=== PATIENT | male | born 1985 | race Caucasian/White ===

== ENCOUNTER → 2018-08-18 14:32 | Outpatient (CLI) | payer MEDICAID, SELFPAY ==
[2018-08-18 13:22] VITALS: BMI 26.6
[2018-08-18 15:27] LABS: Hematocrit 46.2 % (40-54); Mean Corp Hgb Conc 34.6 g/gl (32-36); Mean Corpuscular Hgb 29.6 pg (27.0-32.0); Mean Corpuscular Volume 85.4 fL (80-94); Mean Platelet Vol. 9.8 fl (6.2-12.0); Platelet Count 264 K/mm3 (150-450); RBC Distribution Width CV 12.7 % (11.6-14.6); RBC Distribution Width SD 39.3 fl (35.1-43.9); Red Blood Count 5.41 M/mm3 (4.6-6.2)
[2018-08-18 15:34] LABS: Scan Indicated on CBC? Y/N NO
[2018-08-18 15:38] LABS: ALB/GLOB Ratio 0.9 RATIO (0.9-2.4); AST(SGOT) 60 U/L (15-37); Alanine Aminotransfer ALT/SGPT 108 U/L (16-61); Albumin, Serum 3.5 g/dL (3.2-5.0); Alkaline Phosphatase 130 U/L (45-117); Amylase 62 U/L (25-115); Anion Gap 8 (5-15); BUN 20 mg/dL (7-18); BUN/Creat Ratio 19.6 RATIO (10-20); Calcium,Total 8.8 mg/dL (8.5-10.1); Chloride 103 mmol/L (98-107); Creatinine, Serum 1.02 mg/dL (0.70-1.30); EST Glomerular Filtration Rate 89 mL/min (>60); Est Glom Filt Rate - Afr Amer 107 mL/min (>60); Globulin 4.1 g/dL (2.2-4.2); Glucose 92 mg/dL (74-106); Lipase 178 U/L (73-393); Potassium 4.4 mmol/L (3.5-5.1); Protein, Total 7.6 g/dL (6.4-8.2); Sodium Level 141 mmol/L (136-145)
== END ==
PROVIDERS: Family Provider Family Medicine; PCP Family Medicine; Referring Provider Surgery; Visit Provider Surgery
DX: R10.9 Unspecified abdominal pain (principal)
CPT/HCPCS: 36415; 80053; 82150; 83690; 85027

== ENCOUNTER → 2018-08-27 08:02 | Outpatient (CLI) | payer MEDICAID, SELFPAY ==
[2018-08-18 13:22] VITALS: BMI 26.6
--- NOTE | 2018-08-27 08:04 | US_ITS ---
STUDY: ABDOMINAL ULTRASOUND REASON FOR EXAM: Male, 32 years old. Chronic right abdominal pain. TECHNIQUE: Transabdominal ultrasound was performed with real-time and static crawford scale imaging. TECHNICAL QUALITY: Adequate. COMPARISON: None. FINDINGS: Liver: The liver measures 14.7 cm. There is normal echogenicity of the liver. The bile ducts are within normal limits. There is hepatic color flow. The direction of portal flow is hepatopetal. There is no demonstrated mass lesion. Gallbladder: Normal distended gallbladder. The gallbladder wall measures 3 mm. There is a negative sonographic Frost's sign. There is no pericholecystic fluid. There is biliary sludge dependent within the gallbladder. Common Bile Duct (C.B.D.): The common bile duct measures 3 mm. Pancreas: Normal size of the head, body and tail of the pancreas. There is normal echogenicity of the pancreas. There is no demonstrated pancreatic mass or cyst. Spleen: There is splenomegaly. The spleen measures 13.1 cm. Right Kidney: Normal size of the right kidney. The right kidney measures 10.4 cm. Normal renal cortex. The right cortex measures 2. cm. There is no demonstrated renal mass or cyst. Questionable stone versus vascular calcification lower pole the right kidney. There is no right hydronephrosis. Left Kidney: Normal size of the left kidney. The left kidney measures 10.7 cm. Normal renal cortex. The left cortex measures 1.6 cm. There is no demonstrated renal mass or cyst. There is no left hydronephrosis. Aorta: No abdominal aortic aneurysm. I.V.C.: The IVC is patent. There is no ascites. US/Abdomen Complete IMPRESSION: 1. Splenomegaly. 2. Nonobstructing stone versus vascular calcification lower pole of the right kidney. 3. Gallbladder sludge without secondary evidence of acute cholecystitis. 4. Otherwise normal ultrasound of the abdomen. Electronically Signed: Abelardo Varma DO at 23:50 EST Tel [phone], Service support ,
--- OUTSIDE RECORDS SUMMARY | 2018-10-29 02:41 | XMS RPT_ITS ---
:1985 Author Organization [facility] Care Team Providers Name Role Phone AJ GUZMAN Attending Unavailable AJ GUZMAN Referring Unavailable MICHELLE RICHMOND Primary Care Unavailable AJ GUZMAN Attending Unavailable AJ GUZMAN Referring Unavailable MICHELLE RICHMOND Primary Care Unavailable AJ GUZMAN Attending Unavailable AJ GUZMAN Referring Unavailable MICHELLE RICHMOND Primary Care Unavailable NATHANIEL REES Attending Unavailable MICHELLE RICHMOND Referring Unavailable MICHELLE RICHMOND Primary Care Unavailable NATHANIEL REES Attending Unavailable NATHANIEL REES Referring Unavailable MICHELLE RICHMOND Primary Care Unavailable NATHANIEL REES Attending Unavailable MICHELLE RICHMOND Referring Unavailable MICHELLE RICHMOND Primary Care Unavailable NATHANIEL REES Attending Unavailable MICHELLE RICHMOND Referring Unavailable NAUMOFF, MICHELLE Aguilar Primary Care Unavailable Cebul, Brigido Attending Unavailable NAUMYULISSA, MICHELLE Referring Unavailable Cebul, Brigido Attending Unavailable Cebul, Brigido Referring Unavailable Naumoff, Michelle Primary Care Unavailable Cebul, Brigido Attending Unavailable Cebul, Brigido Referring Unavailable NAUMOFF, MICHELLE Primary Care Unavailable PROBLEMS PROBLEMS DATE TYPE CONDITION / CODE ATTENDING STATUS SOURCE 08/18/2018 Unknown R10.9 - Cebul, Brigido Active [facility] Unspecified Community abdominal pain / Hospital R10.9(ICD-10) Repository 08/18/2018 Unknown K40.90 - Cebul, Brigido Active [facility] Unilateral [facility] inguinal hernia, Hospital without Repository obstruction or gangrene, not specified as recurrent / K40.90(ICD-10) 08/18/2018 Unknown R10.13 - Cebul, Brigido Active [facility] Epigastric pain / Community R10.13(ICD-10) Hospital Repository PROCEDURES PROCEDURES No Procedure Records FoundRESULTS RESULTS ABDOMEN COMPLETE Observed: 08/27/2018 Status: F Source: [place] 8:05 AM [facility] Imaging Services [address] [place] [id number] Abdomen Complete MR#: [id number] Acct: [id number] Name: BEVERLEY KIMBLESERGIO Penaloza Rep #: [id number] : 1985 M 32 From: Abelardo Varma DO PCP: Michelle Richmond MD Status: REG CLI Study: Abdomen Complete Date of Exam: 08/27/18 Exam# [id number] Ordering Dr: Brigido Carr MD STUDY: ABDOMINAL ULTRASOUND REASON FOR EXAM: Male, 32 years old. Chronic right abdominal pain. TECHNIQUE: Transabdominal ultrasound was performed with real-time and static crawford scale imaging. TECHNICAL QUALITY: Adequate. COMPARISON: None. FINDINGS: Liver: The liver measures 14.7 cm. There is normal echogenicity of the liver. The bile ducts are within normal limits. There is hepatic color flow. The direction of portal flow is hepatopetal. There is no demonstrated mass lesion. Gallbladder: Normal distended gallbladder. The gallbladder wall measures 3 mm. There is a negative sonographic Frost's sign. There is no pericholecystic fluid. There is biliary sludge dependent within the gallbladder. Common Bile Duct (C.B.D.): The common bile duct measures 3 mm. Pancreas: Normal size of the head, body and tail of the pancreas. There is normal echogenicity of the pancreas. There is no demonstrated pancreatic mass or cyst. Spleen: There is splenomegaly. The spleen measures 13.1 cm. Right Kidney: Normal size of the right kidney. The right kidney measures 10.4 cm. Normal renal cortex. The right cortex measures 2. cm. There is no demonstrated renal mass or cyst. Questionable stone versus vascular calcification lower pole the right kidney. There is no right hydronephrosis. Left Kidney: Normal size of the left kidney. The left kidney measures 10.7 cm. Normal renal cortex. The left cortex measures 1.6 cm. There is no demonstrated renal mass or cyst. There is no left hydronephrosis. Aorta: No abdominal aortic aneurysm. I.V.C.: The IVC is patent. There is no ascites. US/Abdomen Complete IMPRESSION: 1. Splenomegaly. 2. Nonobstructing stone versus vascular calcification lower pole of the right kidney. 3. Gallbladder sludge without secondary evidence of acute cholecystitis. 4. Otherwise normal ultrasound of the abdomen. Electronically Signed: Abelardo Varma DO at 23:50 EST Tel [phone], Service support , CC: Michelle Richmond MD; Brigido Carr MD Housekeeper/Custodian/Laundry Worker: Signed Observed: 08/25/2018 Status: F Source: [place] [facility]PIRAT[facility] CULTURE 2:20 PM [facility] REPOSITORY Result with sensitivities?->Yes Respiratory Culture: Staphylococcus aureus Pseudomonas aeruginosa (m) Pseudomonas aeruginosa (r) Source: [facility] Collected: 08/25/18 14:20 Site: Received : 08/25/18 17:30 Gram Stain FINAL 08/25/18 23:33 Greater than 25 polymorphonuclear leukocytes per low power field Less than 10 epithelial cells per low power field Moderate Gram positive cocci Moderate Gram negative rods Respiratory Culture FINAL 08/30/18 15:16 Normal oropharyngeal maisha present. Moderate Staphylococcus aureus Few Pseudomonas aeruginosa (m) Few Pseudomonas aeruginosa (r) Organism S.aureus P. aeruginosa (m) P. aeruginosa (r) Antibiotic AURELIA INT AURELIA INT AURELIA INT Cefepime S S Aztreonam S S Ceftazidime S S Cefuroxime R D1 Cefazolin R D1 Ciprofloxacin S S Clindamycin AURELIA <=0.25 R Erythromycin >=8 R Gentamicin S S Meropenem S S Oxacillin 1 R Piperacillin S S Pip/Tazobactam S D2 S D2 Tetracycline <=1 S Tobramycin S S Trimethoprim/Sulfa <=10 S Vancomycin AURELIA <=0.5 S -----DRUG COMMENTS D1: This drug interpretation was deduced from the Automated Susceptibility Testing Instrument and does not contain an AURELIA value. D2: This drug was tested with the Hunt Aaron method and does not contain an AURELIA value. S=Sensitive I=Intermediate R=Resistant AURELIA results are reported in ug/ml Performed By: #### RESP #### [address] [address] Observed: 08/25/2018 Status: P Source: [place] ACID FAST CULT/ST. 2:20 PM [facility] [[email or web address] REPOSITORY Acid Fast Stain: No acid-fast bacilli seen in smear. Source: [facility] Collected: 08/25/18 14:20 Site: Received : 08/25/18 17:30 Acid Fast Stain FINAL 08/27/18 13:16 No acid-fast bacilli seen in smear. Fluorescent Stain Testing Performed: [facility] [place] [address] Acid Fast Culture PRELIM 08/27/18 13:16 Specimen received, will be kept for 6 weeks for testing. Testing Performed: [facility] [place] [address] Performed By: #### TBC/S #### [address] [address] CBC-COMPLETE BLOOD CNT Collected: 08/18/2018 Status: F Source: [place] NO DIFF 2:41 PM [facility] TYPE CODE TESTS RESULT OUT OF RANGE REFERENCE UNITS LAB L100.1000 4.4-11.0 K/mm3 Normal WBC 10.0 LAB L100.1200 4.6-6.2 M/mm3 Normal RBC 5.41 LAB L100.1300 13.0-16.5 g/dl Normal HGB 16.0 LAB L100.1400 40-54 % Normal HCT 46.2 LAB L100.1500 80-94 fL Normal MCV 85.4 LAB L100.1600 27.0-32.0 pg Normal MCH 29.6 LAB L100.1700 32-36 g/gl Normal MCHC 34.6 LAB L100.1810 11.6-14.6 % Normal RDW CV 12.7 LAB L100.1820 35.1-43.9 fl Normal RDW SD 39.3 LAB L100.1900 150-450 K/mm3 Normal PLT 264 LAB L100.2000 6.2-12.0 fl Normal MPV 9.8 Performed By: #### L100.0500 #### [facility] [address] [place], [place], [id number] COMPREHENSIVE METABOLIC Collected: 08/18/2018 Status: F Source: [place] 2:41 PM [facility] TYPE CODE TESTS RESULT OUT OF RANGE REFERENCE UNITS LAB L501.0100 74-106 mg/dL Normal GLU 92 Result Comment: Please note revised GLUCOSE reference range effective 2017. LAB L501.1000 7-18 mg/dL High BUN 20 LAB L501.1100 0.70-1.30 mg/dL Normal CREAT,SERUM 1.02 Result Comment: The validity of the calculated GFR AND GFRAA in patients over 70 years has not been determined. Clinical correlation is essential. LAB L501.1110 >60 mL/min Normal EST GFR 89 Result Comment: Non- GFR Calc LAB L501.1115 >60 mL/min Normal EST GFR - AA 107 Result Comment: GFR Calc LAB L501.1300 10-20 RATIO Normal BUN/CRE 19.6 LAB L501.1500 6.4-8.2 g/dL T Normal PROT 7.6 LAB L501.1800 3.2-5.0 g/dL Normal ALB 3.5 LAB L501.1950 2.2-4.2 g/dL Normal GLOB 4.1 LAB L501.2000 0.9-2.4 RATIO Normal A/G 0.9 LAB L501.2200 8.5-10.1 mg/dL CA Normal 8.8 LAB L501.4100 15-37 U/L High AST 60 LAB L501.4305 45-117 U/L High ALK P 130 LAB L501.4405 16-61 U/L High ALT 108 LAB L501.4600 0.20-1.00 mg/dL T Normal BILI 0.40 LAB L501.5300 136-145 mmol/L NA Normal 141 LAB L501.5600 3.5-5.1 mmol/L K Normal 4.4 LAB L501.5900 98-107 mmol/L CL Normal 103 LAB L501.6100 21.0-32.0 mmol/L Normal CO2 30.0 LAB L501.6200 5-15 Normal GAP 8 Performed By: #### L500.4050, L501.2400, L501.2450 #### [facility] [address] [place], [address] AMYLASE Collected: 08/18/2018 Status: F Source: [place] 2:41 PM [facility] TYPE CODE TESTS RESULT OUT OF RANGE REFERENCE UNITS LAB L501.2400 25-115 U/L Normal CHICHO 62 Performed By: #### L500.4050, L501.2400, L501.2450 #### [facility] [address] [place], [address] LIPASE Collected: 08/18/2018 Status: F Source: [place] 2:41 PM [facility] TYPE CODE TESTS RESULT OUT OF RANGE REFERENCE UNITS LAB L501.2450 73-393 U/L Normal LIPASE 178 Performed By: #### L500.4050, L501.2400, L501.2450 #### [facility] [address] [place], [address] SURGERY VISIT REPORT Observed: 08/18/2018 Status: F Source: [place] 2:23 PM [facility] [address] [place] [address] OFFICE VISIT Date of Service: 08/18/18 MR#: [id number] Acct: [id number] Name: ROSALIND KIMBLE Rep #: [id number] : 1985 Provider: Brigido Carr MD Age/Sex: 32/M Location: [facility] Status: Signed Intake Vital Signs08/18/18 Height 5 ft 9 in 08/18/18 Weight: 180 lb 08/18/18 Body Mass Index (BMI) 26.6 08/18/18 Blood Pressure 120/75 08/18/18 Blood Pressure Location Lt brachial Intake Visit Reasons: Unilateral Inguinal Hernia Is patient in pain?: No Allergies No Known Allergies Allergy (Unverified 08/18/18 13:23) Medications albuterol sulfate HFA 90 mcg/actuation aerosol inhaler 2 puff INHALATION Q6H PRN 08/18/18 [History Confirmed 08/18/18] azithromycin 500 mg tablet 500 mg PO DAILY 08/18/18 [History Confirmed 08/18/18] dornase melanie 1 mg/mL solution for inhalation 2.5 mg INHALATION DAILY 08/18/18 [History Confirmed 08/18/18] fluticasone 100 mcg-salmeterol 50 mcg/dose blistr powdr for inhalation 1 puff INHALATION BID 08/18/18 [History Confirmed 08/18/18] thqqwy-gitxsayz-cxherkl 5,000-17,000-24,000 unit capsule, delayed rel PO cap 08/18/18 [History Confirmed 08/18/18] loratadine 10 mg tablet 10 mg PO DAILY 08/18/18 [History Confirmed 08/18/18] mometasone 50 mcg/actuation nasal spray 2 spray INTRANASAL DAILY 08/18/18 [History Confirmed 08/18/18] tobramycin 28 mg capsules for inhalation 4 cap INHALATION Q12H 08/18/18 [History Confirmed 08/18/18] PFSH Medical History Epigastric abdominal pain (Acute) Inguinal hernia of right side without obstruction or gangrene (Acute) Back problem (Acute) Cystic fibrosis (Acute) Fracture, finger (Resolved) Nasal Polyp Removal (Resolved) RespiratoryThroat Surgery (Resolved) Family History Sister Asthma Cystic fibrosis Brother Asthma Cystic fibrosis Social History Smoking Status: Never smoker alcohol intake: never substance use type: does not use HPI HPI HPI: ROSALIND KIMBLE, is a 32 M who presents to the office today for general surgical consultation regarding a increasingly symptomatic right inguinal hernia. The patient is referred by his primary care physician Dr. Michelle Richmond and a written compromise surgical consult recommendations will be returned to him For at least 4 years the patient has known of a right anal hernia. He has cystic fibrosis. He works on a dairy farm. He takes an extensive number of medications that his pulmonary clearance exercises has an external chest pack to assist with pulmonary clearance. He believes that this likely facilitated his development of the right inguinal hernia. Of course on the farm he does a significant amount of lifting and straining. Recently he has had several episodes where he has bulging and fullness of the right groin. He finds that if he lies supine and elevates his legs at this area will reduce. What he is not sure about however said he gets episodes of mid abdominal pain. This causes him to bend over. He also at that time has a pain in his mid scapular back. His medications include a Pancrease. Patient states that he rarely has nausea or vomiting but when his cystic fibrosis activates he will sometimes have diarrhea. He is not sure whether his bouts of mid abdominal pain are related to when his hernia is out.. He is not sure whether the 2 are connected or separate ROS General General: No weight change, appetite, fatigue, colon cancer, breast cancer or weakness HEENT HEENT: No difficulty swallowing, eye injury, eye surgery, swollen glands or hoarseness Endo Endocrine: No thyroid disease, diabetes mellitus, thyroid cancer, Hair loss, heat intolerance or cold intolerance Skin Skin: No rash or changing moles Breast Breast: No left breast lump, right breast lump, nipple discharge, breast pain, abnormal mammogram, abnormal US or breast enlargement Musc Musculoskeletal: Yes back problems; no arthritis, rheumatoid arthritis, gout or joint pain Cardio Cardiovascular: No murmur, pacemaker, heart disease, atrial fibrillation, high blood pressure, heart attack, heart stent, palpitations, shortness of breat with exertion or chest pain Psych Psychiatric: No depression, anxiety or hearing voices Resp Respiratory: Yes shortness of breath, Yes sleep apnea, Yes cough, Yes asthma, No COPD, No emphysema, No wheezing Gastro Gastrointestinal: Yes abdominal pain, Yes diarrhea, Yes constipation, Yes black,tarry stools, No nausea or vomiting, No blood in stool, No acid reflux, No hemorrhoids, No ulcers, No gallbladder problem [place] Hematologic: No blood thinners, No blood disorders, No bleeding, No anemia, No blood clots Neuro Neurologic: No system reviewed and no additional complaints, except as docu, No as per HPI, No abnormal walking, No abnormal hearing, No abnormal movements, No abnormal speech, No behavioral changes, No burning sensations, No confusion, No seizure-like activity, No unsteadiness, No dizziness, No localized weakness, No frequent falls, No headache(s), No lack of coordination, No loss of vision, No memory loss, No numbness, No other visual disturbances, No radiating pain, No restless legs, No sensory deficit, No fainting, No tingling, No tremor(s), No weakness, No other Exam Const General: cooperative, comfortable, no acute distress Nutritional Appearance: average body habitus Orientation: alert, awake, oriented x3 HENMT Head: normal to inspection Other: Eyes Other: Right lateral deviation right eye Chest Breast Palpation: No nipple discharge Other: Slightly increased anterior posterior diameter Resp Effort AND Inspection: normal respiratory effort Auscultation: clear to auscultation bilaterally Cardio Rate: regular rate Rhythm: regular rhythm Heart Sounds: no murmurs GI Palpation: soft, no hepatosplenomegaly Auscultation: normal bowel sounds Other: Very small nontender umbilical hernia Other: Reducible suspected indirect right inguinal hernia. Right testicle somewhat difficult to palpate but no obvious mass. No mass on the left. No inguinal defect on the left Skin General: no rashes or lesions noted Neuro General: alert, awake, oriented x3 Cognition: normal cognition Extrem General: no calf tenderness bilaterally Psych Affect: normal affect Assessment AND Plan Problems 1. Inguinal hernia of right side without obstruction or gangrene K40.90 2. Epigastric abdominal pain R10.13 Plan 32-year-old gentleman who clearly has a right inguinal hernia. He has chronic pulmonary problems and will have ongoing chronic pulmonary clearance problems. I believe that a laparoscopic repair with standard mesh would offer him the least chance of recurrence in this situation and I have discussed the technique, benefit, risks, alternatives Regarding his episodes of mid to lower epigastric pain with pain radiating to his mid scapular back the etiology of this is not is clear. I believe it is feasible to obtain a complete metabolic profile amylase and lipase as well as a gallbladder ultrasound. If this is unremarkable then I would proceed with inguinal hernia repair. If gallstones are identified then might consider a laparoscopic right inguinal herniorrhaphy as the initial procedure and barring any difficulties potentially proceeding at the same setting with a laparoscopic cholecystectomy. The patient has had an opting to ask and have questions answered. He is interested in proceeding while his duties on the dairy farm are more limited at this time of year. He is aware that there are no guarantees of success. I very much appreciate the kind opportunity of assisting with surgical care CC: Dr. Michelle Carr M.D., F.A.C.S. Orders Orders: Medications New: Coding Level of Care Code Comprehensive,moderate Diagnoses Inguinal hernia of right side without obstruction or gangrene K40.90 Epigastric abdominal pain R10.13 08/18/18 1481 <Electronically signed by Brigido D Cebul MD> Date Brigido Fuchs Signature: Date (if applicable) CC: Michelle Richmond MD Observed: 05/12/2018 Status: F Source: [place] [facility] CULTURE 2:12 PM [facility] [[email or web address]] REPOSITORY Result with sensitivities?->Yes Respiratory Culture: Staphylococcus aureus Pseudomonas aeruginosa (s) Pseudomonas aeruginosa (m) Source: [facility] Collected: 05/12/18 14:12 Site: Other Received : 05/12/18 15:03 Respiratory Culture FINAL 05/17/18 09:26 Normal oropharyngeal maisha present. Moderate Staphylococcus aureus D-TEST: POSITIVE This isolate is presumed to be resistant to clindamycin based on detection of inducible clindamycin resistance. Moderate Pseudomonas aeruginosa (s) Few Pseudomonas aeruginosa (m) Organism S.aureus P. aeruginosa (s) P. aeruginosa (m) Antibiotic AURELIA INT AUREILA INT AURELIA INT Cefepime S S Aztreonam S S Ceftazidime S S Cefuroxime S D1 Cefazolin S D1 Ciprofloxacin S S Clindamycin AURELIA <=0.25 R Erythromycin >=8 R Gentamicin I S Meropenem S S Oxacillin 1 S Piperacillin S S Pip/Tazobactam S D2 S D2 Tetracycline <=1 S Tobramycin S S Trimethoprim/Sulfa <=10 S Vancomycin AURELIA <=0.5 S -----DRUG COMMENTS D1: This drug interpretation was deduced from the Automated Susceptibility Testing Instrument and does not contain an AURELIA value. D2: This drug was tested with the Hunt Aaron method and does not contain an AURELIA value. S=Sensitive I=Intermediate R=Resistant AURELIA results are reported in ug/ml Gram Stain FINAL 05/12/18 17:42 Greater than 25 polymorphonuclear leukocytes per low power field Less than 10 epithelial cells per low power field Many Gram negative rods Few Gram positive cocci Rare Gram positive rods Performed By: #### RESP #### [address] [address] PROGRESS NOTE Observed: 05/12/2018 Status: COMPLETED Source: [place] 12:40 PM [facility] [[email or web address]] REPOSITORY The patient is here today for routine CF care. No concerns. Started HTS 3%, tolerated. zis doing. Likes [place] vest - has been more productive, feels like he is mobilizing old secretions. Also trial [place], will do on/off 28 days. FEV1 marginally improved. PES 1 Doing well - Rosalind Kimble current problems include: Patient Active Problem List Diagnosis Cystic fibrosis - use contact precautions Pancreatic insufficiency Allergic rhinitis Nasal polyp Cystic fibrosis with pulmonary manifestations Polycythemia Unspecified asthma(493.90) Hearing loss Pseudomonas infection Please see Doc flowsheet for PES score Pulmonary Exacerbation Score ROS: Pertinent items are noted in HPI. Please see H&P. CF Chronic Meds: ACT - vest Albuterol - yes Hypersal - has available prn Pulmozyme - yes Chronic PSA - yes Chirag- yes Colistin- no [place]- no Zithromax- yes CFTR modulator therapy G542X / R347P, does not qualify for CFTR modulator therapy Ibuprofen - no Other - no PE: Vitals: 05/12/18 1233 BP: 104/71 Pulse: 85 Resp: 16 Temp: 36.9 C (98.4 F) SpO2: 97% Weight: 80.5 kg General: Patient appears alert, oriented appropriately for age, well developed, well nourished and in no acute distress Head: atraumatic and normocephalic Neuro: alert, oriented appropriately for age Eyes: pupils equal, round, and reactive to light, sclera and conjunctiva clear Ears: canals clear, normal, tragus nontender, hearing intact to conversation Nose: nares patent without discharge Throat: oropharynx is clear Neck: there is full range of motion, supple, no cervical lymphadenopathy is present Chest: breath sounds are clear to auscultation bilaterally without rales, rhonchi, or wheezes Cardiac: regular rate and rhythm, normal S1 and S2 Diagnostics: Office spirometry was reviewed. Historical Spirometry 06/21/2014 05/02/2015 06/14/2015 04/30/2016 FEV1 % PRED 81 75 73 82 Historical Spirometry 07/23/2016 08/23/2016 08/23/2016 09/17/2016 FEV1 % PRED 79 75 76 75 Historical Spirometry 11/01/2016 02/10/2018 05/12/18 FEV1 % PRED 79 76 77 Assessment and Plan: 1. CF with pulmonary manifestations -stable -had plans earlier this year for home IVs, but FEV1 improved -Bronchodilators and airway clearance to 2-3 x/day -Continue all other chronic medications, aerosols and enzymes -Inhaled antibiotics -trial Fabricio successful, continue -trial 3% HTS -didn't tolerate 7% chronically, tolerated 3% -flu vaccine 2. Asthma -albuterol to 4 times a day when ill -symbicort 80/4.5 - 2 puffs twice a day with spacer- rinse mouth after use 3. Pancreatic insufficiency -MVW (not taking) -cholecalciferol 5000 2 daily 4. Polycythemia -hx, continue to monitor 5. Hernia (Right Inguinal) -saw surgeon at [place] -he links sxs with constellation of right back pain, constipation, right inguinal bulfing -has relaxation, improves with BM -knows to go to ED is sxs persist > 2-3 hours or worsens 6. Abnormal liver enzymes (2x normal) -will need to monitor periodically, weekly when in on IV's 7. Allergic rhinitis -Zyrtec, Flonase FU 3 months Counseling and/or coordination of care ([id number]-ow-dwjq time in the office/outpatient setting or floor/unit time in the hospital) was greater than 45 minutes,which is more than 50% of the total time of 60 minutes spent on this encounter. Nathaniel Rees MD URINALYSIS,COMPLETE Collected: Status: F Source: [place] 02/10/2018 4:34 PM [facility] [[email or web address]] REPOSITORY Order Comment: Is this order Clinic Collect?->Yes Is this specimen being sent to an external lab?->No TYPE CODE TESTS RESULT OUT OF REFERENCE UNITS RANGE LAB COLRU(LOIN NA C) Color Yellow LAB DAYANNA(LOIN NA C) Character Clear LAB SPGRU(LOIN 1.005-1.030 NA C) Specific gravity 1.016 LAB LEUKS(LOIN Negative leuk/ul C) Leukocyte Esterase NEGATIVE LAB NITRI(LOIN Negative mg/dl C) Nitrites NEGATIVE LAB PHUR(LOINC 5.0-8.0 NA ) pH, Urine 5.0 LAB HGBUR(LOIN Negative RBC's/uL C) Hemoglobin NEGATIVE LAB PROQL(LOIN Neg.-Trace mg/dL C) Protein,Ur NEGATIVE LAB GLUQL(LOIN Negative mg/dL C) Glucose, Urine NEGATIVE LAB KETOU(LOIN Negative mg/dL C) Ketones NEGATIVE LAB URBIL(LOIN Negative mg/dl C) Urobilinogen 0.2 LAB BILE(LOINC Negative mg/dL ) Bilirubin,urine NEGATIVE LAB VOL(LOINC) 12 ml Volume 12 LAB WBCUR(LOIN 0-2 /HPF C) WBC's 0-2 LAB RBCUR(LOIN 0-2 /HPF C) RBC's 0-2 LAB EPI(LOINC) 0-2 /HPF Epithelial Cells 0-2 Performed By: #### UACOM #### [facility] [place] [address] [place] [id number] Observed: 02/10/2018 Status: F Source: [place] RESPIRATORY CULTURE 3:01 PM [facility] REPOSITORY Result with sensitivities?->Yes Respiratory Culture: Pseudomonas aeruginosa (m) Source: [facility] Collected: 02/10/18 15:01 Site: Other Received : 02/10/18 15:50 Gram Stain FINAL 02/10/18 16:38 Greater than 25 polymorphonuclear leukocytes per low power field Less than 10 epithelial cells per low power field Many Gram positive cocci Many Gram negative rods Respiratory Culture FINAL 02/14/18 10:11 Normal oropharyngeal maisha present. Moderate Pseudomonas aeruginosa (m) Organism P. aeruginosa (m) Antibiotic AURELIA INT Cefepime S Aztreonam S Ceftazidime S Ciprofloxacin S Gentamicin S Meropenem S Piperacillin S Pip/Tazobactam S D1 Tobramycin S -----DRUG COMMENTS D1: This drug was tested with the Hunt Aaron method and does not contain an AURELIA value. S=Sensitive I=Intermediate R=Resistant AURELIA results are reported in ug/ml Performed By: #### RESP #### [address] [address] Observed: 02/10/2018 Status: F Source: YOGESH ACID FAST CULT/ST. 3:01 PM [facility] Acid Fast Stain: No acid-fast bacilli seen in smear. Source: [facility] Collected: 02/10/18 15:01 Site: Other Received : 02/10/18 15:50 Acid Fast Stain FINAL 02/12/18 11:03 No acid-fast bacilli seen in smear. Fluorescent Stain Testing Performed: [facility] [employer] [place] [address] Acid Fast Culture FINAL 03/26/18 15:49 No acid-fast bacilli isolated after 6 weeks incubation. Testing Performed: [facility] [employer] [place] [address] Performed By: #### TBC/S #### [address] [address] Observed: 02/10/2018 Status: F Source: YOGESH FUNGUS CULTURE 3:01 PM [facility] Fungus Culture: No fungi isolated. Source: [facility] Collected: 02/10/18 15:01 Site: Other Received : 02/10/18 15:49 Fungus Culture FINAL 03/10/18 12:40 No fungi isolated. Performed By: #### MYRA #### [address] [address] PROGRESS NOTE Observed: 02/10/2018 Status: COMPLETED Source: ASHER 12:40 PM [facility] Rosalind Kimble is here for their annual visit An inter-disciplinary team conference was held with regard to this patient, and a case review document was created outlining the plan of care for this patient. This document was reviewed in it's entirety with the patient during today's visit. All labs and studies were reviewed with the patient. All questions were answered to the satisfaction of the patient. See below for details. Generally reports doing well. 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 Had a family reunion mother's side) in [place] recently - really enjoyed the time with his cousins. Reports ough is at baseline, but productive and intermittent throughout the day. Bowels controlled, no issues with appetite or BM. Finds that finding time for nebulized Chirag/Bethkis (insurance will not authorize PodHaler) difficulin his daily routine. Plan/Recommendations/Goals: 1. 5 year survivorship 2. Weight trend 3. PFT trend 4. Stretching 5. Depression/Anxiety Screen 6. Chronic therapies - Is he doing HTS?- clarify if trialed -irritant (7%) -trial 3% -prefers PodHaler -trial fabricio 7. Cx,AFB,F 8. Needs hearing eval -off Bethkis 9. Needs urinalysis 10. Needs to clarify if taking vitamins - add vitamin D -5,000 x 2 11. Did he receive flu vaccine for 2016? -no -counseled re importance, OK to get locally CF Chronic Meds: ACT - vest Albuterol - yes Hypersal - has available prn Pulmozyme - yes Chronic PSA - yes Chirag- yes Colistin- no [place]- no Zithromax- yes CFTR modulator therapy [id number] / R347P, does not qualify for CFTR modulator therapy Ibuprofen - no Other - no Patient Active Problem List Diagnosis Cystic fibrosis - use contact precautions Pancreatic insufficiency Allergic rhinitis Nasal polyp Cystic fibrosis with pulmonary manifestations Polycythemia Unspecified asthma(493.90) Hearing loss PES: Pulmonary Exacerbation Score 0 Office spirometry was reviewed. Historical Spirometry 06/21/2014 05/02/2015 06/14/2015 04/30/2016 FVC % PRED 85 81 79 86 FEV1 % PRED 81 75 73 82 Historical Spirometry 07/23/2016 08/23/2016 08/23/2016 09/17/2016 FVC % PRED 83 81 82 80 FEV1 % PRED 79 75 76 75 Historical Spirometry 11/01/2016 02/10/2018 FVC % PRED 81 81 FEV1 % PRED 79 76 Review of Systems: Pertinent items are noted in HPI. Please see H&P. A comprehensive review of systems was negative. Did not get flu vaccine last year, advised to get Immunization History Administered Date(s) Administered INFLUENZA SPLIT 0.5 ML 06/03/2010, 06/30/2012 Influenza Vaccine 0.5 mL >= 3 Yr Trivalent 06/22/2013 Influenza Vaccine 0.5 mL Quadrivalent (PF) 06/21/2014, 06/14/2015, 07/23/2016 Influenza Whole 05/07/2011 Pneumococcal Polysaccharide 12/06/1999, 10/20/2004 Physical exam: BP 113/76 Pulse 74 Temp 37 C (98.6 F) (Temporal) Resp 16 Ht 175.3 cm Wt 80.8 kg SpO2 99% BMI 26.29 kg/m General: Patient appears alert, oriented appropriately for age, well developed, well nourished and in no acute distress Head: atraumatic and normocephalic Neuro: alert, oriented appropriately for age Ears: canals clear, normal, tragus nontender, hearing intact to conversation Nose: nares patent without discharge Throat: oropharynx is clear Neck: supple, no cervical lymphadenopathy is present Chest: auscultation reveals coarse breath sounds wihtout wheeze or rhonchi Cardiac: regular rate and rhythm, normal S1 and S2 Abdomen: abdomen is soft, nontender, and nondistended without hepatosplenomegaly or masses Skin: pink, warm, well perfused Lymphatic: no adenopathy noted Musculoskeletal: normal tone, moves all extremities equally with full range of motion Counseling and/or coordination of care (kzkb-rg-wvzi time in the office/outpatient setting or floor/unit time in the hospital) was greater than 55 minutes,which is more than 50% of the total time of 95 minutes spent on this encounter. Assessment and Plan: 1. CF with pulmonary manifestations -stable -had plans earlier this year for home IVs, but FEV1 improved -Bronchodilators and airway clearance to 2-3 x/day -Continue all other chronic medications, aerosols and enzymes -Inhaled antibiotics -prefers PodHaler, but not approved -concerned re time -trial [facility] -trial 3% HTS -didn't tolerate 7% chronically, willing to try 3% 2. Asthma -albuterol to 4 times a day when ill -symbicort 80/4.5 - 2 puffs twice a day with spacer- rinse mouth after use 3. Pancreatic insufficiency -MVW -add cholecalciferol 5000 2 daily 4. Polycythemia -hx, continue to monitor 5. Hernia -following surgeon at [facility] -follow up next visit 6. Abnormal liver enzymes (2x normal) -will need to monitor periodically, weekly when in on IV's 7. Allergic rhinitis -Monetyrtekilo, Yinae FU 3 months Nathaniel Rees MD CHEST PA(AP) AND Observed: 11/25/2017 Status: F Source: [place] LATERAL 9:07 AM [facility] [[email or web address]] REPOSITORY PROCEDURE: CHEST PA(AP) AND LATERAL CLINICAL HISTORY: CF annual COMPARISON: 04/16/2016, 10/08/2013. FINDINGS: The cardiomediastinal silhouette is normal. There are bilateral perihilar opacities, not significantly progressed compared to the prior exam 04/16/2016. There is patchy opacity in the lateral aspect of the upper to mid right lung which has been present on prior exams but is slightly more conspicuous. There is coarsening of the interstitial markings. There is no pleural effusion, or pneumthorax. The osseous structures are normal. IMPRESSION: Findings of cystic fibrosis. Patchy opacity in the right upper to midlung has been present on prior exams, but slightly more conspicuous. Reviewed with the resident and approved This report has been created using voice recognition software Signed by: Dr. Savanna Khoury at 11/25/2017 09:48 DEXA SCAN AXIAL Observed: 11/25/2017 Status: F Source: AKRON 9:07 AM [facility] Clinical history: Cystic fibrosis annual checkup. Demographics: 31-year-old white male COMPARISON: 10/29/2012 Technique: Areal bone density and bone mineral content were estimated from the lumbar spine (L1-4), and bilateral proximal femurs on Hologic scanner. Age, gender and ethnicity matched Z-scores were obtained. Results: The bone density measurement for the AP spine is 0.966 g/sq cm. The Z-score is -1.1 based on age. Previous measurement was -0.9 Bone density for proximal left femur is 1.004 g/sq cm with a Z-score of -0.1. For the femoral neck is 0.770 g/sq cm with a Z score of -0.9. Previous measurements were -0.7 for femoral neck. Bone density for proximal right femur is 1.036 g/sq cm with a Z-score of 0.1. For the femoral neck is 0.795g/sq cm for a Z score of -0.7. Previous measurements were -0.5 for femoral neck Impression: Z score measurements within normal standard deviation, but slightly worsened compared to the previous examination. This report has been created using voice recognition software Signed by: Dr. Angel Iglesias at 11/25/2017 10:19 GLUCOSE, 2HR CHALLENGE Collected: 11/25/2017 Status: F Source: AK[place] 9:00 AM [facility] TYPE CODE TESTS RESULT OUT OF REFERENCE UNITS RANGE LAB GLF1(LOINC 70-99 mg/dL ) Glucose,Fasting 98 LAB GL2H(LOINC mg/dL ) Glucose, 2 HR 77 LAB G2HI(LOINC NA ) 2HR Challenge ----- Interp. Result Comment: Criteria for Diagnosis of Diabetes(2HR Challenge): Fasting specimen (no caloric intake for at least 8 hours). <100 mg/dl Normal 100-125 mg/dl Increased Risk for Diabetes >125 mg/dl Diagnostic for Diabetes 2 Hour Specimen (post glucose adminstration). <=139 mg/dl Normal 140-199 mg/dl Increased Risk for Diabetes >=200 mg/dl Diagnostic for Diabetes Performed By: #### GL2HR #### [place] [address] COMPLETE BLOOD COUNT Collected: 11/25/2017 Status: F Source: AK[place] 9:00 AM [facility] TYPE CODE TESTS RESULT OUT OF REFERENCE UNITS RANGE LAB IWBC(LOINC 4.5-11.0 10E9/L ) WBC 9.8 LAB NRBC%(LOIN -1.0-0.0 % C) Nucleated RBC % 0.0 LAB RBC(LOINC) 4.50-5.50 10E12/L RBC High 5.79 LAB IHGB(LOINC 13.5-16.5 g/dl ) Hemoglobin 16.5 LAB HCT(LOINC) 41.0-50.0 % Hematocrit 49.5 LAB MCV(LOINC) 80.0-100.0 fl MCV 85.5 LAB MCH(LOINC) 26.0-34.0 pg MCH 28.5 LAB MCHC(LOINC 31.0-37.0 % ) MCHC 33.3 LAB RDW(LOINC) 0.0-14.4 % RDW 12.3 LAB PLT(LOINC) 150-450 10E9/L Platelets 269 LAB MPV(LOINC) fl MPV 9.3 Result Comment: MPV is platelet range and age dependent LAB CMPLT(LOINC) NA Differential Complete Manual LAB IG%(LOINC) % % Immature granulocyte 0.40 Result Comment: Immature Granulocyte Percent includes promyelocytes, myelocytes, and metamyelocytes. IG% > 1.0 indicates a left shift is present. With automated differentials, bands are included in the neutrophil count and not in the Immature Granulocyte Percent. Performed By: #### CBC #### [place] [id number] PROTHROMBIN TIME AND Collected: 11/25/2017 Status: F Source: [place] ACTIVATED PTT 9:00 AM [facility] [[email or web address]] REPOSITORY TYPE CODE TESTS RESULT OUT OF REFERENCE UNITS RANGE LAB PROTM(LOIN 8.5-14.0 seconds C) Prothrombin Time 10.3 Result Comment: Children < 1 yr of age may have a slightly prolonged prothrombin time as the test is dependent on the level to which their coagulation factors have developed. LAB INR(LOINC) 0.7-1.3 NA INR 1.0 Result Comment: New Normal Ranges - Effective 02/22/11 Therapeutic Range for Oral Anticoagulant Anticoagulant Therapy INR Standard Therapy 2.0-3.0 Prophylaxsis/Treatment of venous thrombosis Treatment of PE Prevention of systemic embolism Tissue heart valves Acute Myocardial Infarction (to prevent systemic embolism) Valvular heart disease Atrial fibrillation Higher Intensity 2.5-3.5 Mechanical Prosthetic valves The INR is used only for patients on stable oral anticoagulant therapy. It makes no significant contribution to the diagnosis or treatment of patients whose PT is prolonged for other reasons. LAB APTT(LOINC) 0.0-40.0 seconds Activated PTT 24.9 Result Comment: Children < 1 yr of age may have a slightly prolonged activated partial thromboplastin time as the test is dependent on the level to which their coagulation factors have developed. Performed By: #### PTPTT #### [address] [address] MANUAL DIFFERENTIAL Collected: 11/25/2017 Status: F Source: [place] 9:00 AM [facility] REPOSITORY TYPE CODE TESTS RESULT OUT OF REFERENCE UNITS RANGE LAB BANDS(LOIN 5-11 % C) Band Neutrophils Low 0 LAB SEGS(LOINC 35-66 % ) Segmented High Neutrophils 78 LAB LYMPH(LOIN 24-44 % C) Lymphocytes Low 13 LAB MONO(LOINC 3-6 % ) Monocytes High 9 LAB META(LOINC 0-0 % ) Metamyelocytes 0 LAB MYELO(LOIN 0-0 % C) Myelocytes 0 LAB PROMY(LOIN 0-0 % C) Promyelocytes 0 LAB ABNEU(LOIN NA C) Absolute Neutrophil No. 7.6 LAB ANISO(LOIN NA C) Anisocytosis Slight LAB POIK(LOINC NA ) Poikilocytosis Slight Performed By: #### MIKEY #### [place] [address] COMP METABOLIC PANEL Collected: 11/25/2017 Status: F Source: ASHER 9:00 AM [facility] [[email or web address]] REPOSITORY TYPE CODE TESTS RESULT OUT OF REFERENCE UNITS RANGE LAB NA(LOINC) 133-145 mEq/L Sodium 136 LAB K(LOINC) 3.3-5.1 mEq/L Potassium 4.1 LAB CL(LOINC) 96-108 mEq/L Chloride 106 LAB TCO2(LOINC 22.0-29.0 mEq/L ) Carbon Dioxide 23.7 LAB BUN(LOINC) 4-19 mg/dL Urea High Nitrogen 21 LAB GLU(LOINC) 70-99 mg/dL Glucose 97 Result Comment: Criteria for Diagnosis of Diabetes(Effective 01/08/11): Fasting specimen (no caloric intake for at least 8 hours). <100 mg/dl Normal 100-125 mg/dl Increased Risk for Diabetes >125 mg/dl Diagnostic for Diabetes Random Glucose (any time of day without regard to last meal). >=200 mg/dl plus Classic Symptoms of Diabetes LAB TBILI(LOINC) 0.0-1.0 mg/dl Bili,Total 0.6 Result Comment: Premature : 1 Day 1.0-6.0 mg/dl 2 Day 6.0-8.0 mg/dl 3-5 Day 10.0-15.0 mg/dl LAB AST(LOINC) 0-37 U/L AST 29 LAB ALT(LOINC) 0-41 U/L ALT 41 LAB ALKP(LOINC) 40-129 U/L Alkaline Phosphatase 106 LAB CA(LOINC) 7.6-11.0 mg/dL Calcium 8.7 LAB TP(LOINC) 5.9-8.4 g/dL Protein,Total 7.5 LAB ALB(LOINC) 3.5-5.0 g/dL Albumin 4.0 LAB CREA(LOINC) 0.70-1.20 mg/dL Creatinine 0.80 Result Comment: Premature 0.3-1.0 mg/dL Performed By: #### CMP #### [place] [address] GGT Collected: 11/25/2017 Status: F Source: ASHER 9:00 AM [facility] [[email or web address]] REPOSITORY TYPE CODE TESTS RESULT OUT OF RANGE REFERENCE UNITS LAB GGT(LOINC) 7-51 U/L GGT 39 Performed By: #### GGT #### [place] [address] IMMUNOGLOBULIN E Collected: 11/25/2017 Status: F Source: ASHER 9:00 AM [facility] [[email or web address]] REPOSITORY TYPE CODE TESTS RESULT OUT OF REFERENCE UNITS RANGE LAB IGE(LOINC) 0-100 IU/mL Immunoglobulin E 40 Performed By: #### IGE #### [place] [address] HEMOGLOBIN A1C Collected: 11/25/2017 Status: F Source: ASHER 9:00 AM [facility] [[email or web address]] REPOSITORY TYPE CODE TESTS RESULT OUT OF REFERENCE UNITS RANGE LAB HA1C(LOINC 0.0-6.4 % ) Hemoglobin A1C 5.4 LAB HA1CI(LOIN NA C) HgbA1c Interpretation ----- Result Comment: In Diagnosed Diabetes: > 8 Action suggested 7-8 Good Control 6-7 Near Normal Glycemia < 6 Non-diabetic level Diabetes Screenin.7-6.4% Prediabetic >6.5% Diabetic - should be confirmed with repeat HgA1c or fasting blood sugar. Performed By: #### HBA1C #### [place] [address] TESTOSTERONE, TOTAL Collected: 11/25/2017 Status: F Source: ASHER 9:00 AM [facility] [[email or web address]] REPOSITORY TYPE CODE TESTS RESULT OUT OF RANGE REFERENCE UNITS LAB TES1(LOINC) 240-950 ng/dL 463 Testosterone , Total Result Comment: ADDITIONAL INFORMATION Testing performed by Liquid Chromatography-Tandem Mass Spectrometry (LC-MS/MS). This test was developed and its performance characteristics determined by [facility] in a manner consistent with CLIA requirements. This test has not been cleared or approved by the U.S. Food and Drug Administration. Test Performed by: [place] [address] Performed By: #### TESTO #### [address] [address] VITAMIN A Collected: 11/25/2017 Status: F Source: ASHER 9:00 [facility] TYPE CODE TESTS RESULT OUT OF REFERENCE UNITS RANGE LAB VITA1(LOINC 32.5-78.0 mcg/dL ) Vitamin A 42.0 Result Comment: ADDITIONAL INFORMATION This test was developed and its performance characteristics determined by [facility] in a manner consistent with CLIA requirements. This test has not been cleared or approved by the U.S. Food and Drug Administration. Test Performed by: [place] [address] Performed By: #### MICAH #### [address] [address] VITAMIN E Collected: 11/25/2017 Status: F Source: ASHER 9:00 AM [facility] [[email or web address]] REPOSITORY TYPE CODE TESTS RESULT OUT OF REFERENCE UNITS RANGE LAB VTE1(LOINC) 5.5 - 17.0 mg/L Vitamin E 7.2 Result Comment: ADDITIONAL INFORMATION This test was developed and its performance characteristics determined by [facility] in a manner consistent with CLIA requirements. This test has not been cleared or approved by the U.S. Food and Drug Administration. Test Performed by: [facility] [address] [place] [address] Performed By: #### NATHANIEL #### [address] [address] VITAMIN D 25 [place] Collected: 11/25/2017 Status: F Source: ASHER 8:49 AM [facility] [[email or web address]] REPOSITORY TYPE CODE TESTS RESULT OUT OF REFERENCE UNITS RANGE LAB VD25E(LOINC 20-50 ng/mL ) 25 OH Vitamin D 22 Result Comment: Reference ranges provided by [facility] are based on consensus conferences and expert opinion: Level Characterization 1-10 ng/mL Vitamin D deficiency 11-24 ng/mL Suboptimal Vitamin D status 25-80 ng/mL Optimal Vitamin D status >80 ng/mL Potentially toxic Vitamin D effects Performed By: #### V25DH #### [address] [address] ALLERGIES ALLERGIES DATE TYPE / CODE NAME / CODE REACTION SEVERITY SOURCE 08/18/2018 Drug No Known Unknown Fredis Allergy/282815000(S Allergies/F0019 [facility] NOMED CT) [address](RXNORM) Hospital Repository Miscellaneous NO KNOWN [place] Allergy/495137819(S ALLERGIES [facility] NOMED CT) Hospital Repository ENCOUNTERS ENCOUNTERS ADMIT/DISCHARGE ACCOUNT ADMITTING ENCOUNTER LOCATION SOURCE NUMBER CLASS 08/27/2018 [id number] Ambulatory [facility] ing: Repository 08/25/2018/08/25/19 [id number] Ambulatory Building:PUL [place] 19 [facility] Repository 08/18/2018 [id number] [facility] 08/18/2018/08/18/19 [id number] [facility] [place] [facility] 05/12/2018/05/12/20 [id number] Ambulatory Building:PUL [place] 18 [facility] Repository 02/10/2018/07/09 [id number] Ambulatory Building:PHYS [place] 18 [facility] Repository 02/10/2018/02/11/20 [id number] Ambulatory Building:PULM [place] 18 [facility] Repository 11/25/2017/11/26/19 [id number] Ambulatory Building:RADI [place] 18 [facility] Repository 11/25/2017/11/26/19 [id number] Ambulatory Building:RADI [place] 18 [facility] Repository 11/25/2017/11/26/19 [id number] Ambulatory Building:CONS [place] 18 IDINE [facility] Repository PAYERS PAYERS ENCOUNTER GUARANTOR PAYER SUBSCRIBER SOURCE 08/27/2018 ROSALIND Penaloza Primary Insurance:[facility] ROSALIND [id number] [facility], [facility]: [id number] [address]Kcd: [id number] Repository Date:[id number] B[address] ([address] [address]LK: 08/27/2018 Secondary NOT GIVENUNK Fredis Insurance:SELF PAY [facility] Number: Effective Repository Date:2018-08-18 08/25/2018 ROSALIND Penaloza Primary Insurance:[place] ROSALIND Penaloza [facility]: [facility]: Hospital [id number] [facility] [id number] [place] [address], Number: [address] [place] [address]Nkg: [id number] [place], [place] Date: [address] () () 08/25/2018 Secondary ROSALIND Penaloza [facility] Children's Insurance:[facility]: Hospital Number: [id number] Repository [id number] [address] [place] [address] Date: [place] [address] 08/18/2018 ROSALIND Penaloza Primary Insurance:[facility] ROSALIND [id number] [facility]: [facility], Number: [id number] Hospital [place] [address]Xos: [id number] Repository Date:3273-05-20FW BOX () [address] [place] [address]RI: 08/18/2018 Secondary NOT GIVENUNK Fredis Insurance:SELF PAY [facility] Number: Effective Repository Date:2018-08-18 08/18/2018 DALMARYANYN C Primary Insurance:[facility] DALEWYN C [place] [address]: [facility] RdDALTDAYO, Number: [id number] [place] [address]Cvn: [id number] Repository Date:6875-52-51QL BOX () [address] [place] [address]DE: 08/18/2018 Secondary NOT GIVENUNK [place] Insurance:SELF PAY [facility] Number: Effective Repository Date:2018-08-12 05/12/2018 DALEWYN C Primary Insurance:[place] DALMARYANYN C [place] [facility]: [facility]: Hospital [facility] [id number] [facility] RDDAKALA, Number: [address] [place] [address]Wzj: [id number] [place], [place] Date: [address] (HP) (WP) 05/12/2018 Secondary DALMARYANYN C [place] [facility] Insurance:[facility]: Hospital Number: [id number] Repository [id number] [address] [place] [address] Date: [place] [address] 02/10/2018 DALEWYN C Primary Insurance:[place] BEVERLEYYN C [facility]: [facility]: Hospital [id number] [facility] [id number] [facility] RDDALTDAYO, Number: [address] [place] [address]Xzz: [id number] [place], [place] Date: [address] (HP) (WP) 02/10/2018 Secondary DALEWYN Kilo [place] [facility] Insurance:[facility]: Hospital Number: [id number] Repository [id number] 08 [facility] Date: [place] [address] 02/10/2018 DALEWYN C Primary Insurance:[place] ROSALIND Penaloza [place] [facility]: Hospital [id number] [facility] [id number] Repository [facility] [place], Number: [address] [place] [address]Bkb: [id number] [place], [place] Date: [address] (HP) (WP) 02/10/2018 Secondary DALEWYN Kilo [place] [facility] Insurance:[facility]: Hospital Number: [id number] Repository [id number] 08 [facility] Date: [place] [address] 11/25/2017 DALEWYN C Primary Insurance:[place] ROSALIND Penaloza [facility]: [facility]: Hospital [facility] [id number] Repository [facility] [place], Number: [address] [place] [address]Npd: [id number] [place], [place] Date: [address] (HP) (WP) 11/25/2017 Secondary DALEWYN Kilo [place] [facility] Insurance:[facility]: Hospital Number: [id number] Repository [id number] 08 [facility] Date: [place] [address] 11/25/2017 DALEWYN C Primary Insurance:[place] BEVERLEYYN Kilo [facility]: [facility]: Hospital [id number] [facility] [id number] Repository [facility] [place], Number: [address] [place] [address] [place] [address]Nnm: [id number] [place], [place] Date: [address] (HP) (WP) 11/25/2017 Secondary ROSALIND Penaloza [place] [facility] Insurance:[facility]: Hospital Number: [id number] Repository [id number] [address] [place] [address] Date: [place] [address] 11/25/2017 HAJAAALIYAH Penaloza Primary Insurance:[place] ROSALIND Penaloza [facility]: [facility]: [facility] [id number] [facility] [id number] [facility] Number: [address] [place] [id number]: [id number] [place] Date: [id number] () (WP) 11/25/2017 Secondary ROSALIND Penaloza [facility] Insurance:[facility]: Hospital Number: [id number] Repository [id number] [address] [place] [address] Date: [place] [address]
== END ==
PROVIDERS: Family Provider Family Medicine; PCP Family Medicine; Referring Provider Surgery; Visit Provider Surgery
DX: R10.9 Unspecified abdominal pain (principal)
CPT/HCPCS: 76700

== ENCOUNTER 2018-09-09 11:27 | Day surgery (SDC) | payer MEDICAID, SELFPAY ==
[2018-08-18 13:22] VITALS: BMI 26.6
[2018-09-04 11:35] LABS: Hematocrit 46.9 % (40-54); Hemoglobin 15.6 g/dl (13.0-16.5); Mean Corp Hgb Conc 33.3 g/gl (32-36); Mean Corpuscular Volume 87.2 fL (80-94); Mean Platelet Vol. 9.5 fl (6.2-12.0); Platelet Count 230 K/mm3 (150-450); RBC Distribution Width SD 41.2 fl (35.1-43.9); Red Blood Count 5.38 M/mm3 (4.6-6.2); White Blood Count 10.1 K/mm3 (4.4-11.0)
[2018-09-04 11:38] LABS: Scan Indicated on CBC? Y/N NO
[2018-09-04 12:25] LABS: Anion Gap 10 (5-15); BUN 27 mg/dL (7-18); Calcium,Total 8.6 mg/dL (8.5-10.1); Chloride 106 mmol/L (98-107); Creatinine, Serum 1.04 mg/dL (0.70-1.30); EST Glomerular Filtration Rate 87 mL/min (>60); Est Glom Filt Rate - Afr Amer 105 mL/min (>60); Glucose 92 mg/dL (74-106); Potassium 4.4 mmol/L (3.5-5.1); Sodium Level 143 mmol/L (136-145)
[2018-09-09 12:01] VITALS: BP 112/67; PULSE 57; RESP 18; TEMP 36.8; O2SAT 100; BMI 25.7
--- NOTE | 2018-09-09 15:03 | DCINST_ITS ---
Discharge Diet: Light diet - advance as tolerated - if you have questions about your diet instructions, please talk to you doctor. Discharge Activity: May Not Drive - for 3-5 days or while taking narcotic pain medicine. May shower in (days): 1 Lifting Restrictions: 10 pounds Call your doctor if your incision/area has: Continuous Slow Oozing, Sudden Increased Bleeding, Increased Pain/ Swelling, Increased Redness, Foul Smelling Discharge Call your doctor if you observe: Fever of 101 or Higher Suture Line Care: Avoid Pulling/Pushing, Avoid Pinching/Bending Additional Dressing/Incision Instructions:: Change or remove dressing in 4 days. Leave steri-strips in place for 1 week. Allergies/Adverse Reactions: Allergies No Known Allergies Allergy (Verified 09/02/18 11:53) Medications to take at Discharge albuterol sulfate HFA 90 mcg/actuation aerosol inhaler 2 puff INHALATION BID 08/18/18 azithromycin 500 mg tablet 500 mg PO MOWEFR 08/18/18 dornase melanie 1 mg/mL solution for inhalation 2.5 mg INHALATION DAILY 08/18/18 fluticasone 100 mcg-salmeterol 50 mcg/dose blistr powdr for inhalation 2 puff INHALATION BID 08/18/18 [id number] 5,000-17,000-24,000 unit capsule, delayed rel 3 tab PO TID cap 08/18/18 loratadine 10 mg tablet 10 mg PO PRN PRN 08/18/18 mometasone 50 mcg/actuation nasal spray 2 spray INTRANASAL PRN PRN 08/18/18 tobramycin 28 mg capsules for inhalation 4 cap INHALATION Q12H 08/18/18 Aztreonam Lysine [[place]] 75 mg IH TID 09/02/18 Cholecalciferol (Vitamin D3) [Vitamin D3] 10,000 unit PO BID 09/02/18 Ciprofloxacin [Cipro] 500 mg PO BID 09/02/18 Smz/Tmp Ds [Bactrim Ds] 2 tablet PO DAILY 09/02/18 Hydrocodone Bitart/Apap 5-325 [[place] 5MG-325MG] 1 tablet PO Q6H PRN PRN 3 Days #8 tablet 09/09/18 The following prescriptions were given: Hydrocodone Bitart/Apap 5-325 [[place] 5MG-325MG] 1 tablet PO Q6H PRN PRN 3 Days #8 tablet PRN Reason: Pain Primary Care Physician: Raul Richmond MD [Primary Care Provider] - Test Results: Test results from this visit will be discussed in further detail at your follow- up appointment, if applicable. Please Follow Up With: Brigido Carr MD - [phone] When: Call to make an appointment to be seen in about 10 days.
[2018-09-09] MEDS: Cefazolin 2 GM in 0.9% Normal Saline 100 ML IV (15:06)
[2018-09-09] MEDS: Bupivacaine Mpf 0.5% 30 ML VIAL (16:29)
--- NOTE | 2018-09-09 16:33 | PCM.OPRPT ---
Problem List (1) Inguinal hernia of right side without obstruction or gangrene Status: Acute (2) Umbilical hernia Status: Acute Qualifiers: Obstruction and gangrene presence: without obstruction or gangrene Qualified Code(s): K42.9 - Umbilical hernia without obstruction or gangrene Report of Operation Date of Procedure: 09/09/18 Pre-Operative Diagnosis: Indirect right inguinal hernia Post-Operative Diagnosis: Large indirect right inguinal hernia. Umbilical hernia Surgery/Procedure Performed:: Laparoscopic right inguinal herniorrhaphy. Umbilical herniorrhaphy Description of Surgical Findings:: Timeout and informed consent was obtained. 32-year-old gent was taken the operative placement table underwent general endotracheal intubation anesthesia. Ancef 2 g given intravenously preoperatively. The abdomen sterilely prepped draped. 0.5% Marcaine was used as a local anesthetic. Throughout the procedure a total of 30 cc was used. Skin sites were pre-anesthetized. A curvilinear incision was made at the inferior aspect of the umbilicus sharp and blunt dissection was used to identify an umbilical hernia. The umbilical skin was dissected free and the small amount of preperitoneal fatty tissue was dissected free. Holding sutures of 0 Vicryl placed. Veress needle was inserted the abdomen was insufflated with CO2 to a pressure of 10 mmHg pressure. To la trocar inserted. No evidence of intraocular injuries. 5-minute trochars were placed in the left mid abdomen right lower quadrant. Inspection revealed a solid left groin. A very large indirect right inguinal hernia that had omentum and some small bowel within it. The upper abdomen grossly did not appear to be remarkable. A ilioinguinal nerve block was performed on the right in the lap scopic visualization. The peritoneum superior lateral to the internal ring was incised carried medially and then tediously the sac was dissected free. It was a very large sac and extensive dissection was performed but eventually I felt that I had to transect the sac in order to get it freed. So I used Metzenbaum scissors to lap scopic we transect the sac the distal part retracted down into the scrotum and this allowed me to finish the complete release of the peritoneum. The urinary bladder was identified the pubic tubercle identified lateral to the internal ring I had it nicely dissected free as I did inferiorly. A Bard 3 DMax large right mesh was selected it was placed so as to cover the defect area it very nicely fit into position. I secured it laterally superiorly and medially with secure strap. Excellent positioning was achieved and excellent coverage. The peritoneum was then approximated to itself with secure strap. This completely obliterated access to the mesh. The peritoneal defect which was quite lax was approximated with several hemo-lock clips to completely obliterate access. Trochars were removed under visualization the abdomen was allowed to deflate his CO2 the fascia umbilical hernia was approximated with multiple interrupted simple sutures of 0 Nurolon transversely. Very nice closure was achieved. The wound edges were approximated with interrupted 4 Monocryl subdermal stitches. Steri-Strips Telfa and OpSite dressings applied. Sponge and instrument and needle counts were reported to the surgeon be correct. Blood loss was minimal. He was taken to the recovery area in satisfactory condition without apparent complication Brigido Carr M.D., F.A.C.S. Type of Anesthesia:: General Anesthesiologist: Wilbert Villatoro
[2018-09-09 16:55] VITALS: BP 112/67; BP 122/80; PULSE 63; RESP 16; TEMP 37.1; O2SAT 95
[2018-09-09 17:00] VITALS: BP 112/67; BP 126/81; PULSE 61; RESP 16; O2SAT 95
[2018-09-09 17:15] VITALS: BP 112/67; BP 119/80; PULSE 56; RESP 16; TEMP 36.8; O2SAT 97
[2018-09-09] MEDS: HYDROcodone Bitartrate/Apap 5/325 Tablet PO (17:31)
--- NOTE | 2018-09-09 19:31 | NURSING ---
up to BR with slow steady gait, per pt report voided but not sure if emptied bladder had some hesitancy. Bladder scanned for only 60cc post void. Pt taking fluids well. pain controlled. will dc home per verbal instructions dr beach.
[2018-09-09 19:33] VITALS: BP 112/67; BP 116/78; PULSE 58; RESP 16; TEMP 36.8; O2SAT 98
== END 2018-09-09 19:34 | disposition home or self-care (01) ==
LOC: SDC 11:27 → AC 11:29
PROVIDERS: Family Provider Family Medicine; PCP Family Medicine; Referring Provider Surgery; Visit Provider Surgery
PROC: (CPT 49650; principal; 2018-09-09 13:10)
DX: K40.90 Unilateral inguinal hernia, without obstruction or gangrene, not specified as recurrent (principal); K42.9 Umbilical hernia without obstruction or gangrene; E84.9 Cystic fibrosis, unspecified; J45.909 Unspecified asthma, uncomplicated; Z79.899 Other long term (current) drug therapy
CPT/HCPCS: 49585; 49650; 36415; 80048; 85027; 93005; J7120; C1781

== ENCOUNTER → 2021-12-29 | Outpatient (CLI) | payer MEDICAID, SELFPAY ==
[2021-12-29 17:47] LABS: AST(SGOT) 32 U/L (15-37); Alanine Aminotransfer ALT/SGPT 91 U/L (16-61); Albumin, Serum 3.9 g/dL (3.2-5.0); Alkaline Phosphatase 109 U/L (45-117); Bilirubin, Direct 0.16 mg/dL (0.00-0.30); Globulin 3.7 g/dL (2.2-4.2); Protein, Total 7.6 g/dL (6.4-8.2)
== END | disposition home or self-care (01) ==
LOC: LAB 14:36
PROVIDERS: PCP Family Medicine
DX: E84.9 Cystic fibrosis, unspecified (principal)
CPT/HCPCS: 36415; 80076